=== PATIENT | male | born 1990 | race Two or more races ===

== ENCOUNTER 2018-03-18 19:37 | Inpatient (IN) | payer MEDICAID ==
[~2018-03-18] VITALS: Ht 180.3 cm; Wt 83.2 kg
[2018-03-18 21:41] LABS: AMPHET/METH SCREEN,URINE NEGATIVE (NEGATIVE); BARBITURATE SCREEN, URINE NEGATIVE (NEGATIVE); BENZODIAZEPINES SCREEN,URINE NEGATIVE (NEGATIVE); CANNABINOID SCREEN,URINE NEGATIVE (NEGATIVE); COCAINE SCREEN,URINE NEGATIVE (NEGATIVE); METHADONE SCREEN, URINE NEGATIVE (NEGATIVE); OPIATE SCREEN,URINE NEGATIVE (NEGATIVE); PHENCYCLIDINE SCREEN,URINE NEGATIVE (NEGATIVE)
[2018-03-18 21:48] LABS: BASOPHILS % (AUTO) 0.9 % (0.0-2.0); EOSINOPHILS % (AUTO) 4.2 % (1.0-6.0); HEMOGLOBIN 15.4 g/dL (13.5-17.5); LYMPHOCYTES % (AUTO) 32.5 % (22.0-44.0); MEAN CORPUSCULAR HEMOGLOBIN 29.4 pg (26.0-34.0); MEAN CORPUSCULAR HGB CONC 33.4 G/dL (31.0-37.0); MEAN CORPUSCULAR VOLUME 88 fL (80-100); MONOCYTES # (AUTO) 0.5 K/uL (0.1-1.0); MONOCYTES % (AUTO) 8.1 % (2.0-9.0); NEUTROPHILS # (AUTO) 3.3 K/uL (1.8-7.7); NEUTROPHILS % (AUTO) 54.3 % (40.0-70.0); PLATELET COUNT (AUTO) 201 K/uL (150-450); RED BLOOD CELL COUNT(AUTO) 5.22 MIL/uL (4.50-5.90); RED CELL DISTRIBUTION WIDTH 13.3 % (11.5-14.5)
[2018-03-18 22:03] LABS: ANION GAP 9 mmol/L (8-16); CALCIUM, TOTAL 9.5 mg/dL (8.8-10.5); CARBON DIOXIDE 26 mmol/L (22-29); CHLORIDE 105 mmol/L (98-107); CREATININE 0.79 mg/dL (0.60-1.30); GLOMERULAR FILTR. RATE CALC > 60 mL/min (>60); GLUCOSE,RANDOM 85 mg/dL (70-110); POTASSIUM 3.9 mmol/L (3.5-5.1); SODIUM SERUM 140 mmol/L (136-145); UREA NITROGEN, BLOOD 10 mg/dL (7-18)
[2018-03-18 22:09] LABS: ALANINE AMINOTRANSFERASE 30 U/L (12-78); ALBUMIN 4.1 g/dL (3.4-5.0); ALKALINE PHOSPHATASE 71 U/L (46-116); ASPARTATE AMINOTRANSFERASE 18 U/L (15-37); BILIRUBIN,TOTAL 0.5 mg/dL (0.1-1.0); TOTAL PROTEIN, SERUM 7.5 g/dL (6.4-8.2)
[2018-03-19] MEDS ORDERED: LORazepam 2 MG TABLET PO PRN (03:30)
[2018-03-19] MEDS ORDERED: HALOPERIDOL 5 MG TABLET PO PRN (03:30)
[2018-03-19] MEDS ORDERED: ZOLPIDEM TARTRATE 10 MG TABLET PO PRN (03:30)
[2018-03-19 14:47] VITALS: BP 113/85
[2018-03-19] MEDS ORDERED: GuaiFENesin/D-METHORPHAN [SUGAR-FREE] 200-20MG/10 ML SYRUP UDCUP PO PRN (16:30)
[2018-03-19] MEDS ORDERED: CloNIDine HCL 0.1 MG TABLET PO PRN (16:30)
[2018-03-19] MEDS ORDERED: DOCUSATE SODIUM 100 MG CAPSULE PO PRN (16:30)
[2018-03-19] MEDS ORDERED: LOPERAMIDE HCL 2 MG CAPSULE PO PRN (16:30)
[2018-03-19] MEDS ORDERED: PETROLATUM,WHITE 71 GM JELLY TP PRN (16:30)
[2018-03-19] MEDS ORDERED: IBUPROFEN 400 MG TABLET PO PRN (16:30)
[2018-03-19] MEDS ORDERED: ACETAMINOPHEN 325 MG TABLET PO PRN (16:30)
[2018-03-19] MEDS ORDERED: ALBUTEROL SULFATE HFA 90 MCG/PUFF 8 GM INHALER IH PRN (16:30)
[2018-03-19] MEDS ORDERED: ONDANSETRON HCL 4 MG TABLET PO PRN (16:30)
[2018-03-19] MEDS ORDERED: NICOTINE 14 MG/24 HOUR PATCH TD PRN (16:30)
[2018-03-19] MEDS ORDERED: MAG HYDROX/AL HYDROX/SIMETH ES 30 ML SUSPENSION UDCUP PO PRN (16:30)
[2018-03-19] MEDS ORDERED: MAGNESIUM HYDROXIDE SUSPENSION 30 ML UDCUP PO PRN (16:30)
[2018-03-19 16:34] VITALS: BP 120/65
[2018-03-20 04:21] VITALS: BP 124/78
[2018-03-20 08:00] VITALS: BP 128/66
[2018-03-20 08:46] LABS: BASOPHILS % (AUTO) 1.1 % (0.0-2.0); EOSINOPHILS % (AUTO) 3.1 % (1.0-6.0); HEMATOCRIT 50.3 % (41-53); HEMOGLOBIN 16.8 g/dL (13.5-17.5); LYMPHOCYTES # (AUTO) 2.1 K/uL (1.0-4.8); LYMPHOCYTES % (AUTO) 33.1 % (22.0-44.0); MEAN CORPUSCULAR HEMOGLOBIN 29.8 pg (26.0-34.0); MEAN CORPUSCULAR HGB CONC 33.4 G/dL (31.0-37.0); MEAN CORPUSCULAR VOLUME 89 fL (80-100); MONOCYTES # (AUTO) 0.6 K/uL (0.1-1.0); MONOCYTES % (AUTO) 8.7 % (2.0-9.0); NEUTROPHILS # (AUTO) 3.5 K/uL (1.8-7.7); PLATELET COUNT (AUTO) 236 K/uL (150-450); RED BLOOD CELL COUNT(AUTO) 5.64 MIL/uL (4.50-5.90); RED CELL DISTRIBUTION WIDTH 13.1 % (11.5-14.5)
[2018-03-20 11:36] LABS: ALANINE AMINOTRANSFERASE 29 U/L (12-78); ALBUMIN 4.5 g/dL (3.4-5.0); ALKALINE PHOSPHATASE 71 U/L (46-116); ANION GAP 11 mmol/L (8-16); ASPARTATE AMINOTRANSFERASE 13 U/L (15-37); BILIRUBIN,TOTAL 0.8 mg/dL (0.1-1.0); CALCIUM, TOTAL 10.1 mg/dL (8.8-10.5); CARBON DIOXIDE 27 mmol/L (22-29); CHLORIDE 104 mmol/L (98-107); CHOL/HDL RATIO 4.2 (4.2-7.3); CHOLESTEROL 172 mg/dL (131-200); CREATININE 0.82 mg/dL (0.60-1.30); GLOMERULAR FILTR. RATE CALC > 60 mL/min (>60); GLUCOSE,RANDOM 83 mg/dL (70-110); HDL CHOLESTEROL 41 mg/dL (40-60); LDL CHOL (CALC.) 116 mg/dL (0-130); POTASSIUM 4.2 mmol/L (3.5-5.1); SODIUM SERUM 142 mmol/L (136-145); THYROID STIMULATING HORMONE 3.11 uIU/mL (0.36-3.74); TOTAL PROTEIN, SERUM 8.2 g/dL (6.4-8.2); TRIGLYCERIDES 73 mg/dL (15-150); UREA NITROGEN, BLOOD 13 mg/dL (7-18)
[2018-03-20] MEDS ORDERED: HALOPERIDOL LACTATE 5 MG/ML VIAL IM ONE (14:45)
[2018-03-20] MEDS ORDERED: DiphenhydrAMINE HCL 50 MG/ML VIAL IM ONE (14:45)
[2018-03-20] MEDS ORDERED: LORazepam 2 MG/ML VIAL IM ONE (14:45)
[2018-03-20] MEDS: MIRTAZAPINE 15 MG TABLET PO SCH (20:08)
[2018-03-21 06:26] VITALS: BP 124/84
[2018-03-21 08:23] VITALS: BP 110/80
[2018-03-21 16:03] VITALS: BP 122/78
[2018-03-21] MEDS: OLANZapine 5 MG TABLET PO SCH (20:22)
[2018-03-21] MEDS: MIRTAZAPINE 15 MG TABLET PO SCH (20:22)
[2018-03-22 06:42] VITALS: BP 132/78
[2018-03-22 08:03] VITALS: BP 127/68
[2018-03-22 16:00] VITALS: BP 125/83
[2018-03-22] MEDS: OLANZapine 5 MG TABLET PO SCH (20:30)
[2018-03-22] MEDS: MIRTAZAPINE 15 MG TABLET PO SCH (20:30)
[2018-03-23 06:13] VITALS: BP 125/70
[2018-03-23 08:04] VITALS: BP 112/62
[2018-03-23 16:00] VITALS: BP 117/72
[2018-03-23] MEDS: OLANZapine 5 MG TABLET PO SCH (20:10)
[2018-03-23] MEDS: MIRTAZAPINE 15 MG TABLET PO SCH (20:10)
[2018-03-24 06:20] VITALS: BP 107/68
[2018-03-24 08:02] VITALS: BP 119/66
[2018-03-24] MEDS: PALIPERIDONE 3 MG ER TABLET PO SCH (10:15)
[2018-03-24 16:00] VITALS: BP 116/67
[2018-03-24] MEDS: TraZODone HCL 50 MG TABLET PO SCH (20:21)
[2018-03-25 00:35] VITALS: BP 113/71
[2018-03-25 08:29] VITALS: BP 115/63
[2018-03-25] MEDS: PALIPERIDONE 3 MG ER TABLET PO SCH ×2 (09:00→10:30)
[2018-03-25 16:03] VITALS: BP 114/71
[2018-03-25] MEDS: TraZODone HCL 50 MG TABLET PO SCH (20:18)
[2018-03-26 06:20] VITALS: BP 100/67
[2018-03-26 08:03] VITALS: BP 116/74
[2018-03-26] MEDS: PALIPERIDONE 3 MG ER TABLET PO SCH (08:12)
[2018-03-26] MEDS ORDERED: FLUTICASONE PROPIONATE 50 MCG/SPRAY 16 GM NASAL SPRAY NASAL PRN (09:15)
[2018-03-26 16:33] VITALS: BP 129/72
[2018-03-26] MEDS: TraZODone HCL 50 MG TABLET PO SCH ×2 (20:04→20:07)
[2018-03-27 02:28] VITALS: BP 124/70
[2018-03-27 08:04] VITALS: BP 122/76
[2018-03-27] MEDS: PALIPERIDONE 3 MG ER TABLET PO SCH (08:30)
[2018-03-27 16:48] VITALS: BP 109/63
[2018-03-27] MEDS: TraZODone HCL 50 MG TABLET PO SCH (20:21)
[2018-03-28 06:37] VITALS: BP 110/65
[2018-03-28 08:06] VITALS: BP 119/75
[2018-03-28] MEDS: PALIPERIDONE 3 MG ER TABLET PO SCH (08:17)
== END 2018-03-28 12:58 | disposition home or self-care (01) | DRG 750 ==
LOC: EMS 19:39 → B3A 03-19 14:08
PROVIDERS: ADMIT Psychiatry & Neurology Psychiatry; ATTEND Psychiatry & Neurology Psychiatry
DX: F20.0 Paranoid schizophrenia (principal); Z91.14 Patient's other noncompliance with medication regimen; F15.90 Other stimulant use, unspecified, uncomplicated; G25.81 Restless legs syndrome; J30.9 Allergic rhinitis, unspecified; Z91.19 Patient's noncompliance with other medical treatment and regimen; Z91.83 Wandering in diseases classified elsewhere; F19.10 Other psychoactive substance abuse, uncomplicated; F41.9 Anxiety disorder, unspecified; Z71.51 Drug abuse counseling and surveillance of drug abuser
CPT/HCPCS: 83036; 84443; 99285; G0480; J1200; J1630; J2060